=== PATIENT | female | born 1990 | race Caucasian/White ===

== ENCOUNTER → 2021-10-29 | Emergency (ER) | payer OTHER ==
[~2021-10-29] VITALS: Ht 172.7 cm; Wt 68.0 kg
[~2021-10-29] MED LIST: DEXAMETHAS10 MG/1 M1 IJ; FIORICET; IBU600 MG; IMITREX50 MG; KETO10TA2; MILLIPRED5 MG; NORFLEX; ORPHENADRI30 MG/1 M1 IJ; TORADOL60 MG IM
== END | disposition left against medical advice (07) ==
LOC: ER 23:10
DX: Z53.21 Procedure and treatment not carried out due to patient leaving prior to being seen by health care provider (principal)

== ENCOUNTER → 2023-07-24 | Emergency (ER) | payer OTHER ==
[~2023-07-24] VITALS: Ht 175.3 cm; Wt 81.6 kg
[~2023-07-24] MED LIST changes: +ARMOUR THYROID30 M1 PO
[2023-07-24 20:02] LABS: HEMATOCRIT 41.5 % (36.0-45.00); HEMOGLOBIN 13.8 g/dL (12.0-15.00); MEAN CELL VOLUME 83.7 fL (80.00-100.00); MEAN CORPUSCULAR HEMOGLOBIN 27.9 pg (27.00-32.0); MEAN CORPUSCULAR HGB CONC 33.3 g/dl (32.0-36.0); PLATELET COUNT 203 K/uL (150-450); RED BLOOD COUNT 4.96 M/uL (4.00-6.00); RED CELL DISTRIBUTION WIDTH 13.3 % (11.5-14.5)
[2023-07-24 20:14] LABS: ALBUMIN 3.3 gm/dL (3.4-5.0); ALKALINE PHOSPHATASE 47 U/L (50-136); ALT/SGPT 22 U/L (12-78); AST/SGOT 16 U/L (15-37); BILIRUBIN TOTAL 0.43 mg/dL (0.3-1.2); BLOOD UREA NITROGEN 7 mg/dL (7-18); BUN CREA RATIO 11 (7.0-25.0); CALCIUM 8.5 mg/dL (8.5-10.1); CARBON DIOXIDE 27 mEq/L (21-32); CHLORIDE 108 mmol/L (98-107); CREATININE SERUM 0.63 mg/dL (0.55-1.02); GFR 108.83; GLOBULINA 3.6 G/DL (2.4-3.5); GLUCOSE FASTING 94 mg/dL (65-100); OSMOLALITY SERUM 277 MOSM/KG (275-295); POTASSIUM 3.78 mEq/L (3.5-5.1); SODIUM 140 mmol/L (136-145); TOTAL PROTEIN 6.9 gm/dL (6.4-8.2)
== END | disposition home or self-care (01) ==
LOC: ER 16:43
PROVIDERS: General Practice
DX: R11.10 Vomiting, unspecified (principal)

== ENCOUNTER 2024-12-11 18:51 | Emergency (ER) | payer OTHER ==
[~2024-12-11] VITALS: Ht 162.6 cm; Wt 68.0 kg
[2024-12-11] MEDS ORDERED: [UNRECOGNIZED DRUG - OTHER] (19:36)
[2024-12-11] MEDS ORDERED: WELLBUTRIN XL150 M1 PO (19:36)
[2024-12-11] MEDS ORDERED: CLONAZEPAM1 M1 PO (19:36)
[2024-12-11] MEDS ORDERED: 0.9 % SODIUM CHLORIDE 1,000 ML IV ONE (20:00)
[2024-12-11] MEDS ORDERED: ONDANSETRON HCL 2 MG/ML VIAL IV ONE (20:00)
[2024-12-11] MEDS ORDERED: FAMOtidine 10 MG/ML (4ML VIAL) IV ONE (20:00)
[2024-12-11] MEDS ORDERED: ONDANSETRON HCL 2 MG/ML VIAL ONE (20:35)
[2024-12-11] MEDS ORDERED: FAMOTIDINE/PF 20 MG/2 ML VIAL ONE (20:36)
[2024-12-11 21:06] LABS: HEMATOCRIT 42.1 % (36.0-45.00); HEMOGLOBIN 14.3 g/dL (12.0-15.00); MEAN CELL VOLUME 82.7 fL (80.00-100.00); MEAN CORPUSCULAR HEMOGLOBIN 28.2 pg (27.00-32.0); MEAN CORPUSCULAR HGB CONC 34.1 g/dl (32.0-36.0); PLATELET COUNT 250 K/uL (150-450); RED BLOOD COUNT 5.09 M/uL (4.00-6.00); RED CELL DISTRIBUTION WIDTH 15.1 % (11.5-14.5)
[2024-12-11 21:50] LABS: ALKALINE PHOSPHATASE 59 U/L (50-136); ALT/SGPT 29 U/L (12-78); ANION GAP 10 (10.0-20.0); AST/SGOT 29 U/L (15-37); BILIRUBIN TOTAL 0.44 mg/dL (0.3-1.2); BLOOD UREA NITROGEN 9 mg/dL (7-18); BUN CREA RATIO 16 (7.0-25.0); CALCIUM 9.2 mg/dL (8.5-10.1); CARBON DIOXIDE 28 mEq/L (21-32); CHLORIDE 108 mmol/L (98-107); CREATININE SERUM 0.58 mg/dL (0.55-1.02); GLOBULINA 3.5 G/DL (2.4-3.5); GLUCOSE FASTING 100 mg/dL (65-100); HCG QUANTITATIVE < 1 mUI/mL (1-3); OSMOLALITY SERUM 282 MOSM/KG (275-295); POTASSIUM 4.25 mEq/L (3.5-5.1); SODIUM 142 mmol/L (136-145); TOTAL PROTEIN 7.5 gm/dL (6.4-8.2)
[2024-12-11] MEDS ORDERED: ZOFRAN8 MG PO (22:02)
[2024-12-11] MEDS ORDERED: PEPCID AC20 MG PO (22:02)
== END 2024-12-11 23:13 | disposition home or self-care (01) ==
LOC: ER 18:51
PROVIDERS: General Practice
DX: R11.10 Vomiting, unspecified (principal); E03.8 Other specified hypothyroidism

== ENCOUNTER 2025-08-03 13:00 | Emergency (ER) | payer OTHER ==
[~2025-08-03] VITALS: Ht 172.7 cm; Wt 79.4 kg
[~2025-08-03 13:00] MED LIST changes: +CLONAZEPAM1 M1 PO; +PEPCID AC20 MG PO; +WELLBUTRIN XL150 M1 PO; +ZOFRAN8 MG PO; +[UNRECOGNIZED DRUG - OTHER]
[2025-08-03] MEDS ORDERED: SODIUM CHLORIDE 0.45 % 1,000 ML IV ONE (15:30)
[2025-08-03] MEDS ORDERED: FAMOTIDINE/PF 20 MG/2 ML VIAL IV ONE (15:30)
[2025-08-03] MEDS ORDERED: KETOROLAC TROMETHAMINE 30 MG VIAL IV ONE (15:30)
[2025-08-03] MEDS ORDERED: ONDANSETRON HCL 2 MG/ML VIAL IV ONE (15:30)
[2025-08-03] MEDS ORDERED: KETOROLAC TROMETHAMINE 30 MG VIAL ONE (15:38)
[2025-08-03] MEDS ORDERED: ONDANSETRON HCL 2 MG/ML VIAL ONE (15:38)
[2025-08-03] MEDS ORDERED: FAMOTIDINE/PF 20 MG/2 ML VIAL ONE (15:38)
[2025-08-03] MEDS ORDERED: LIDOCAINE HCL 1% 10ML VIAL ONE (15:39)
[2025-08-03 16:12] LABS: BASO % 0.3 % (0.1-1.2); EOS # 0.00 (0.04-0.54); EOS % 0.0 % (0.7-7.0); LYMPH # 1.29 (1.18-3.74); LYMPH % 13.4 % (19.3-53.1); MEAN PLATELET VOLUME 10.30 fl (9.4-12.4); MONO # 0.44 (0.24-0.82); MONO % 4.6 % (4.7-12.5); NEUT # 7.89 (1.56-6.13); NEUT % 81.6 % (34.0-71.1); RED CELL DISTRIBUTION WIDTH 12.9 % (11.6-14.4)
[2025-08-03 16:39] LABS: ALT/SGPT 21.0 U/L (12-78); AST/SGOT 13.0 U/L (15-37); BILIRUBIN TOTAL 0.4 mg/dL (0.3-1.2); BUN CREA RATIO 13.0 (7.0-25.0); CREATININE SERUM 0.69 mg/dL (0.55-1.02); GFR 96.82; GLOBULINA 3.2 G/DL (2.4-3.5); GLUCOSE FASTING 97.0 mg/dL (65-100); OSMOLALITY SERUM 284.0 MOSM/KG (275-295)
[2025-08-03 17:35] LABS: URINE APPEARANCE Clear; URINE BILIRRUBIN Negative (NEGATIVE); URINE BLOOD Negative; URINE COLOR Yellow; URINE GLUCOSE Negative (NEGATIVE); URINE LEUKOCYTE Trace; URINE NITRATE Negative; URINE PROTEIN 30 (NEGATIVE); URINE UROBILINOGEN 1.0 E.U./dl
[2025-08-03 17:38] LABS: URINE BACTERIA 716.3 uL (0.0-1933); URINE EPITHELIAL CELLS 24.5 uL (0.0-38.8); URINE RBC 13.4 uL (0.0-20.8); URINE WBC 3.5 uL (0.0-23.2)
[2025-08-03 18:03] LABS: URINE CAST 0.14 uL (0.0-1.40); URINE KETONE 40 (NEGATIVE)
[2025-08-03] MEDS ORDERED: INTESTINEX680 M1 PO (19:24)
[2025-08-03] MEDS ORDERED: PEPCID20 MG PO (19:24)
== END 2025-08-03 20:18 | disposition home or self-care (01) ==
LOC: ER 13:00
DX: K52.89 Other specified noninfective gastroenteritis and colitis (principal); R10.13 Epigastric pain; E03.8 Other specified hypothyroidism; J45.909 Unspecified asthma, uncomplicated; Z88.1 Allergy status to other antibiotic agents

== ENCOUNTER → 2025-08-06 | Emergency (ER) | payer OTHER ==
[~2025-08-06] VITALS: Ht 175.3 cm; Wt 79.4 kg
[~2025-08-06] MED LIST changes: +0.9 % SODIUM CHLORIDE 1,000 ML IV ONE; +INTESTINEX680 M1 PO; +ONDANSETRON HCL 2 MG/ML VIAL IV ONE; +ONDANSETRON HCL 2 MG/ML VIAL ONE; +PEPCID20 MG PO
[2025-08-06 02:05] LABS: BASO % 0.1 % (0.1-1.2); EOS # 0.02 (0.04-0.54); EOS % 0.3 % (0.7-7.0); LYMPH # 0.33 (1.18-3.74); LYMPH % 4.3 % (19.3-53.1); MEAN PLATELET VOLUME 10.20 fl (9.4-12.4); MONO # 0.33 (0.24-0.82); MONO % 4.3 % (4.7-12.5); NEUT # 6.93 (1.56-6.13); NEUT % 90.9 % (34.0-71.1); RED CELL DISTRIBUTION WIDTH 12.8 % (11.6-14.4)
[2025-08-06 02:24] LABS: ALT/SGPT 22.0 U/L (12-78); AST/SGOT 15.0 U/L (15-37); BILIRUBIN TOTAL 0.64 mg/dL (0.3-1.2); BUN CREA RATIO 12.0 (7.0-25.0); CREATININE SERUM 0.85 mg/dL (0.55-1.02); GFR 76.11; GLOBULINA 3.8 G/DL (2.4-3.5); GLUCOSE FASTING 113.0 mg/dL (65-100); OSMOLALITY SERUM 281.0 MOSM/KG (275-295)
== END | disposition left against medical advice (07) ==
LOC: ER 00:09
PROVIDERS: Preventive Medicine Public Health & General Preventive Medicine
DX: R10.13 Epigastric pain (principal); Z88.8 Allergy status to other drugs, medicaments and biological substances